=== PATIENT | male | born 1990 | race Caucasian/White ===

== ENCOUNTER 2017-07-19 21:22 | Emergency (ER) | payer OTHER ==
[~2017-07-19] VITALS: Ht 188 cm; Wt 106.6 kg
[~2017-07-19 21:22] MED LIST: ADDERALL 30 MG30 MG PO; NORCO 5-325 TA1 EACH PO
[2017-07-19 22:03] LABS: URINE BILIRUBIN NEGATIVE (Negative); URINE BLOOD NEGATIVE (Negative); URINE CLARITY CLEAR; URINE COLOR DARK YELLOW; URINE GLUCOSE-RANDOM NEGATIVE (Negative); URINE KETONES NEGATIVE (Negative); URINE LEUKOCYTES-REFLEX NEGATIVE (Negative); URINE NITRITE-REFLEX NEGATIVE (Negative); URINE PROTEIN TRACE (Negative); URINE SPECIFIC GRAVITY 1.015 (1.005-1.030)
[2017-07-19 22:10] LABS: HEMATOCRIT 47.7 % (42.0-52.0); HEMOGLOBIN 16.4 gm/dL (14.0-18.0); MCH 30.8 pg (26.0-34.0); MCHC 34.4 g/dL (28.0-37.0); MCV 89.4 fL (80.0-100.0); MPV 7.6 fl. (7.2-11.1); NUCLEATED RBCS 0 /100WBC; PLATELET COUNT* 281 thou/uL (150-400); RBC 5.34 mil/uL (4.50-6.00); WBC 11.6 thou/uL (4.0-11.0)
[2017-07-19 22:17] LABS: CALCIUM 9.3 mg/dL (8.5-10.1); CREATININE 1.1 mg/dL (0.6-1.3); POTASSIUM 3.7 mmol/L (3.5-5.1)
[2017-07-19 22:21] LABS: ALBUMIN 4.1 g/dL (3.4-5.0); TOTAL PROTEIN 7.5 g/dL (6.4-8.2)
[2017-07-19 22:46] LABS: ABSOLUTE EOSINOPHILS 0.1 thou/uL (0.0-0.7); ABSOLUTE NEUTROPHILS 9.4 thou/uL (1.6-8.1)
[2017-07-19 22:47] LABS: PLATELET ESTIMATE ADEQUATE
[2017-07-20] MEDS ORDERED: ZOFRAN ODT4 MG PO (00:24)
[2017-07-20] MEDS ORDERED: PHENERGAN 25 MG25 M1 PO (00:24)
[2017-07-20 00:48] VITALS: BP 108/52
== END 2017-07-20 00:52 | disposition home or self-care (01) ==
LOC: M.ERS 21:22
PROVIDERS: Personal Emergency Response Attendant
DX: K52.9 Noninfective gastroenteritis and colitis, unspecified (principal)